=== PATIENT | female | born 2000 | race Caucasian/White ===

== ENCOUNTER 2020-11-20 10:40 | Emergency (ER) | payer OTHER ==
[2020-11-20] MEDS ORDERED: PEPCID AC20 MG PO (14:39)
== END 2020-11-20 14:56 | disposition home or self-care (01) ==
LOC: FER 10:40
DX: L50.0 Allergic urticaria (principal); F17.210 Nicotine dependence, cigarettes, uncomplicated; Z88.0 Allergy status to penicillin
CPT/HCPCS: J1100